=== PATIENT | male | born 1975 | race Caucasian/White ===

== ENCOUNTER 2016-06-16 18:07 | Emergency (ER) | payer MEDICAID ==
[2016-06-16] MEDS ORDERED: LORazepam INJ* 2 MG/ML 1 ML VIAL IV PUSH ONE (18:47)
[2016-06-16] MEDS ORDERED: NS 0.9% 1000 ML* 1,000 ML IV ONE (18:50)
[2016-06-16] MEDS ORDERED: Acetaminophen TAB* 325 MG PO ONE (18:50)
--- NOTE | 2016-06-16 18:55 | ED ---
Medical Screening - HPI Summary HPI Summary: The patient is a 41 year old male presenting to the ED for complaint of extreme restlessness, tremors, and insomnia. States onset of symptoms last night at 1130 PM. Admits to chills, diaphoresis, lightheadedness, dry mouth, urinary frequency with less output. Recent increased in Gabapentin from 600 QD to 600 TID and Risperdal 4 mg QD 2 days ago. Since onset of symptoms last night, has not taken prescribed medications today. Also prescribed Chantix, Clonidine, ibuprofen. Denies OTC medications, overuse of medications, or substance use. History of schizophrenia, PTSD, Anxiety, Hepatitis C. S/P abdominal hernia repairs. FH CAD and HTN. Psych Dr. Arnold. SH:Prior heroin use clean "for many years." Denies alcohol use. - History of Current Complaint Chief Complaint: EDGeneral Stated Complaint: ALLERGIC REACTION Time Seen by Provider: 06/16/16 18:33 PMH/Surg Hx/FS Hx/Imm Hx Psychiatric History: Reports: Hx Schizophrenia, Hx Suicide Attempt, Hx of Violent Episodes Against Others Denies: Hx Eating Disorder - Surgical History Surgery Procedure, Year, and Place: 3 ABD HERNIA REPAIRS Infectious Disease History: No Infectious Disease History: Reports: Hx Hepatitis - HEP C Denies: Traveled Outside the [place] in Last 30 Days - Family History Known Family History: Positive: Cardiac Disease, Hypertension - Social History Alcohol Use: None Substance Use Type: Reports: None Smoking Status (MU): Current Every Day Smoker Type: Cigarettes Amount Used/How Often: 1 PPD Review of Systems Positive: Chills, Skin Diaphoresis. Negative: Fever Eyes: Negative ENT: Negative Negative: Sore Throat, Nasal Discharge Positive: Palpitations. Negative: Chest Pain Respiratory: Negative Positive: Other - no hemoptysis. Negative: Shortness Of Breath, Cough Gastrointestinal: Negative Negative: Abdominal Pain, Vomiting, Diarrhea, Nausea Positive: frequency. Negative: dysuria, discharge, hematuria, incontinence Musculoskeletal: Negative Negative: Arthralgia, Myalgia, Edema Positive: Other - flushed face. Negative: Bruising Neurological: Other - tremors Positive: Anxious, Other - no SI, HI, paranoia or hallucinations. Negative: Depressed All Other Systems Reviewed And Are Negative: Yes Physical Exam Triage Information Reviewed: Yes Vital Signs On Initial Exam: Initial Vitals Temp Pulse Resp BP Pulse Ox 100.4 F 116 28 162/97 99 06/16/16 18:19 06/16/16 18:19 06/16/16 18:19 06/16/16 18:19 06/16/16 18:19 Vital Signs Reviewed: Yes Appearance: Positive: Well-Appearing, No Pain Distress, Well-Nourished Skin: Positive: Warm, Skin Color Reflects Adequate Perfusion, Dry, Other - erythematous flushed face and anterior superior chest Head/Face: Positive: Normal Head/Face Inspection Eyes: Positive: Normal, EOMI, REUBEN, Conjunctiva Clear ENT: Positive: Normal ENT inspection, Hearing grossly normal, Pharynx normal, TMs normal Neck: Positive: Supple, Nontender, No Lymphadenopathy, Other: - no thyromegaly Respiratory/Lung Sounds: Positive: Clear to Auscultation, Breath Sounds Present. Negative: Decreased Breath Sounds, Rales, Rhonchi, Wheezes, Unable to speak in full sentences, Fatigue Cardiovascular: Positive: RRR, Pulses are Symmetrical in both Upper and Lower Extremities, Tachycardia, S1, S2. Negative: Murmur, Rub, Leg Edema Left, Leg Edema Right, S3 Abdomen Description: Positive: Nontender, No Organomegaly, Soft. Negative: CVA Tenderness (R), CVA Tenderness (L), Distended, Guarding, McBurney's Point Tenderness, Peritoneal Signs Bowel Sounds: Positive: Present Musculoskeletal: Positive: Normal, Strength/ROM Intact Neurological: Positive: Normal, Sensory/Motor Intact, Alert, Oriented to Person Place, Time, CN Intact II-III, Reflexes Intact, Normal Gait, Facial Symmetry, Speech Normal Psychiatric: Positive: Anxious - significantly anxious, hyperverbal, hyperkinetic, resting tremors of hands without asterixis AVPU Assessment: Alert - [place] Coma Scale Coma Scale Total: 15 Diagnostics - Vital Signs Vital Signs Temp Pulse Resp BP Pulse Ox 06/16/16 18:19 100.4 F 116 28 162/97 99 - Laboratory Result Diagrams: 06/16/16 19:30 06/16/16 19:30 Lab Statement: Any lab studies that have been ordered have been reviewed, and results considered in the medical decision making process. Re-Evaluation - Re-Evaluation First Eval Re-Evaluation Time: 21:01 Change: Improved Comment: HR significantly improved. Patient appears calm, resting comfortably in bed. Discussed results and discharge plan. Course/Dx - Course Assessment/Plan: Presented for restlessness with recent change in antipsychotic and gabapentin. EKG sinus tachycardia. Initial temp 100.4 F for which tylenol given. Labs demonstrate thrombocytopenia without additional gross abnormality not requiring any emergent intervention. UA and CXR without acute infectious process. Patient demonstrated complete resolution in symptoms after Ativan. Advised to return to previous dosing of medications and call Dr. Arnold tomorrow to discuss further treatment. - Diagnoses Provider Diagnoses: Anxiety, Sinus tachycardia by electrocardiogram Discharge - Discharge Plan Condition: Stable Disposition: HOME Patient Education Materials: Anxiety (ED), Atrial Tachycardia (ED) Referrals: Conner Arnold MD [Medical Doctor] - (Call tomorrow to discuss further medications.)
[2016-06-16 18:58] LABS: Benzodiazepine Urine Screen None Detected (None Detect)
[2016-06-16 19:27] LABS: Urine Bilirubin Negative (Negative); Urine Glucose Negative (Negative); Urine Nitrite Negative (Negative)
[2016-06-16 19:40] LABS: Hematocrit 47 % (42-52); Hemoglobin 15.8 g/dl (14.0-18.0); Mean Corpuscular HGB Conc 34 g/dl (31-36); Mean Corpuscular Hemoglobin 30 pg (27-31); Mean Corpuscular Volume 89 fL (80-94); Mean Platelet Volume 8 um3 (7.4-10.4); Red Blood Count 5.27 10^6/ul (4.0-5.4); Red Cell Distribution Width 13 % (10.5-15); White Blood Count 6.3 10^3/ul (3.5-10.8)
[2016-06-16 19:57] LABS: ALT 18 U/L (7-52); AST 23 U/L (13-39); Albumin 4.5 g/dL (3.2-5.2); Alkaline Phosphatase 62 U/L (34-104); Anion Gap 7 mmol/L (2-11); BUN/Creatinine Ratio 6.4 (8-20); Blood Urea Nitrogen 7 mg/dL (6-24); CO2 Carbon Dioxide 29 mmol/L (22-32); Calcium 9.8 mg/dL (8.6-10.3); Chloride 102 mmol/L (101-111); EGFR African American 95.9 (>60); EGFR Non-African American 74.6 (>60); Glucose 101 mg/dL (70-100); Potassium 3.9 mmol/L (3.5-5.0); Sodium 138 mmol/L (133-145); Total Protein 7.5 g/dL (6.4-8.9)
[2016-06-16 20:25] LABS: Acetaminophen < 15 mcg/mL; Alcohol < 10 mg/dL (<10); Salicylate < 2.50 mg/dL (<30)
[2016-06-16 20:35] LABS: TSH (Thyroid Stimulating Horm) 1.06 mcIU/mL (0.34-5.60)
--- NOTE | 2016-06-16 20:52 | RAD ---
Indication: Fever. 2 views of the chest including dual energy PA views demonstrates no mediastinal shift. Heart is of normal size and configuration. Lung marroquin demonstrate no pleural fluid, pneumonia or pneumothorax. IMPRESSION: No active cardiopulmonary disease.
[2016-06-16] MEDS ORDERED: LORazepam TAB(*) 1 MG PO ONE (21:08)
[2016-06-16 21:37] VITALS: BP 138/83
== END 2016-06-16 21:37 | disposition home or self-care (01) ==
LOC: ED 18:07
DX: R00.2 Palpitations (principal); R00.0 Tachycardia, unspecified; F41.9 Anxiety disorder, unspecified; F17.210 Nicotine dependence, cigarettes, uncomplicated
CPT/HCPCS: 36415; 71020; 80053; 80307; 80320; 80329; 81003; 84443; 85025; 93005; 96374; 99283; A9270-GY; G0480; J2060

== ENCOUNTER 2016-08-16 21:35 | Emergency (ER) | payer OTHER ==
[2016-08-16 21:41] VITALS: BP 142/67
[2016-08-16 22:21] LABS: Urine Bilirubin Negative (Negative); Urine Glucose Negative (Negative); Urine Nitrite Negative (Negative)
[2016-08-16 22:21] LABS: Hematocrit 38 % (42-52); Hemoglobin 12.8 g/dl (14.0-18.0); Mean Corpuscular HGB Conc 34 g/dl (31-36); Mean Corpuscular Hemoglobin 30 pg (27-31); Mean Corpuscular Volume 89 fL (80-94); Mean Platelet Volume 8 um3 (7.4-10.4); Red Blood Count 4.27 10^6/ul (4.0-5.4); Red Cell Distribution Width 14 % (10.5-15); White Blood Count 7.7 10^3/ul (3.5-10.8)
[2016-08-16 22:40] LABS: ALT 15 U/L (7-52); AST 19 U/L (13-39); Albumin 4.1 g/dL (3.2-5.2); Alkaline Phosphatase 50 U/L (34-104); Anion Gap 6 mmol/L (2-11); BUN/Creatinine Ratio 8.3 (8-20); Blood Urea Nitrogen 9 mg/dL (6-24); CO2 Carbon Dioxide 25 mmol/L (22-32); Chloride 104 mmol/L (101-111); EGFR African American 95.9 (>60); EGFR Non-African American 74.6 (>60); Globulin 2.7 g/dL (2-4); Glucose 86 mg/dL (70-100); Potassium 3.6 mmol/L (3.5-5.0); Sodium 135 mmol/L (133-145); Total Protein 6.8 g/dL (6.4-8.9)
[2016-08-16 22:42] LABS: Benzodiazepine Urine Screen None Detected (None Detect)
[2016-08-16 23:03] LABS: Acetaminophen < 15 mcg/mL; Alcohol < 10 mg/dL (<10); Salicylate < 2.50 mg/dL (<30)
--- NOTE | 2016-08-17 00:48 | ED ---
Rojelio Severino Benjamin, scribed for Tru Saavedra MD on 08/16/16 at 2321 . Psychiatric Complaint - HPI Summary HPI Summary: 41yo male c/o increased anxiety, aggressiveness for 2 days. Has hx of schizophrenia and his meds have been recently changed. Pt states "wants to be in a safe place." Pt thinks his anxiety will progress to wanting to hurt self, and thinks people are following him. Pt told his therapist about it today but he says at the time his feelings weren't so "dark." - History Of Current Complaint Chief Complaint: EDMentalHealth Hx Obtained From: Patient Onset/Duration: Sudden Onset, Lasting Days, Still Present Timing: Constant Severity Initially: Mild Severity Currently: Moderate Character: Anxious Aggravating Factor(s): Nothing Alleviating Factor(s): Nothing Associated Signs And Symptoms: Positive: Paranoid Behavior - Allergies/Home Medications Allergies/Adverse Reactions: Allergies Allergy/AdvReac Type Severity Reaction Status Date / Time No Known Allergies Allergy Verified 12/15/15 20:32 PMH/Surg Hx/FS Hx/Imm Hx Psychiatric History: Reports: Hx Schizophrenia, Hx Suicide Attempt, Hx of Violent Episodes Against Others Denies: Hx Eating Disorder - Surgical History Surgery Procedure, Year, and Place: 3 ABD HERNIA REPAIRS Infectious Disease History: No Infectious Disease History: Reports: Hx Hepatitis - HEP C Denies: Traveled Outside the [place] in Last 30 Days - Family History Known Family History: Positive: Cardiac Disease, Hypertension - Social History Occupation: Unemployed Lives: Alone Alcohol Use: None Substance Use Type: Reports: Prescribed, Other Substance Use Comment - Amount & Last Used: Pt states he's been smoking crack, & recently pain meds for teeth Smoking Status (MU): Former Smoker Type: Cigarettes Amount Used/How Often: 1 PPD Review of Systems Constitutional: Negative Eyes: Negative ENT: Negative Cardiovascular: Negative Respiratory: Negative Gastrointestinal: Negative Genitourinary: Negative Musculoskeletal: Negative Skin: Negative Neurological: Negative Positive: Anxious All Other Systems Reviewed And Are Negative: Yes Physical Exam Triage Information Reviewed: Yes Vital Signs On Initial Exam: Initial Vitals Temp Pulse Resp BP Pulse Ox 98.5 F 84 14 142/67 97 08/16/16 21:38 08/16/16 21:38 08/16/16 21:38 08/16/16 21:38 08/16/16 21:38 Vital Signs Reviewed: Yes Appearance: Positive: Well-Appearing, No Pain Distress Skin: Positive: Warm Head/Face: Positive: Normal Head/Face Inspection Eyes: Positive: REUBEN ENT: Positive: Hearing grossly normal Neck: Positive: Supple Respiratory/Lung Sounds: Positive: Breath Sounds Present Cardiovascular: Positive: RRR Abdomen Description: Positive: Nontender, Soft Bowel Sounds: Positive: Present Musculoskeletal: Positive: Strength/ROM Intact Neurological: Positive: Alert, Oriented to Person Place, Time, Normal Gait Psychiatric: Positive: Anxious - [place] Coma Scale Coma Scale Total: 15 Diagnostics - Vital Signs Vital Signs Temp Pulse Resp BP Pulse Ox 08/16/16 21:38 98.5 F 84 14 142/67 97 - Laboratory Lab Results: Lab Results 08/16/16 08/16/16 08/16/16 Range/Units 22:08 22:08 22:09 WBC 7.7 (3.5-10.8) 10^3/ul RBC 4.27 (4.0-5.4) 10^6/ul Hgb 12.8 L (14.0-18.0) g/dl Hct 38 L (42-52) % MCV 89 (80-94) fL MCH 30 (27-31) pg MCHC 34 (31-36) g/dl RDW 14 (10.5-15) % Plt Count 180 (150-450) 10^3/ul MPV 8 (7.4-10.4) um3 Neut % (Auto) 70.8 (38-83) % Lymph % (Auto) 17.0 L (25-47) % [place] % (Auto) 5.2 (1-9) % Eos % (Auto) 4.2 (0-6) % Baso % (Auto) 2.8 H (0-2) % Absolute Neuts (auto) 5.4 (1.5-7.7) 10^3/ul Absolute Lymphs (auto) 1.3 (1.0-4.8) 10^3/ul Absolute Monos (auto) 0.4 (0-0.8) 10^3/ul Absolute Eos (auto) 0.3 (0-0.6) 10^3/ul Absolute Basos (auto) 0.2 (0-0.2) 10^3/ul Absolute Nucleated RBC 0 10^3/ul Nucleated RBC % 0 Sodium 135 (133-145) mmol/L Potassium 3.6 (3.5-5.0) mmol/L Chloride 104 (101-111) mmol/L Carbon Dioxide 25 (22-32) mmol/L Anion Gap 6 (2-11) mmol/L BUN 9 (6-24) mg/dL Creatinine 1.09 (0.67-1.17) mg/dL Est GFR ( Amer) 95.9 (>60) Est GFR (Non-Af Amer) 74.6 (>60) BUN/Creatinine Ratio 8.3 (8-20) Glucose 86 (70-100) mg/dL Calcium 9.0 (8.6-10.3) mg/dL Total Bilirubin 0.60 (0.2-1.0) mg/dL AST 19 (13-39) U/L ALT 15 (7-52) U/L Alkaline Phosphatase 50 (34-104) U/L Total Protein 6.8 (6.4-8.9) g/dL Albumin 4.1 (3.2-5.2) g/dL Globulin 2.7 (2-4) g/dL Albumin/Globulin Ratio 1.5 (1-3) TSH 1.00 (0.34-5.60) mcIU/mL Urine Color Yellow Urine Appearance Clear Urine pH 5.0 (5-9) Ur Specific [place] 1.014 (1.010-1.030) Urine Protein Negative (Negative) Urine Ketones 1+ H (Negative) Urine Blood Negative (Negative) Urine Nitrate Negative (Negative) Urine Bilirubin Negative (Negative) Urine Urobilinogen Negative (Negative) Ur Leukocyte Esterase Negative (Negative) Urine Glucose Negative (Negative) Salicylates < 2.50 (<30) mg/dL Urine Opiates Screen (None Detect) Acetaminophen < 15 mcg/mL Ur Barbiturates Screen (None Detect) Ur Phencyclidine Scrn (None Detect) Ur Amphetamines Screen (None Detect) U Benzodiazepines Scrn (None Detect) Urine Cocaine Screen (None Detect) U Cannabinoids Screen (None Detect) Serum Alcohol < 10 (<10) mg/dL 08/16/16 Range/Units 22:09 WBC (3.5-10.8) 10^3/ul RBC (4.0-5.4) 10^6/ul Hgb (14.0-18.0) g/dl Hct (42-52) % MCV (80-94) fL MCH (27-31) pg MCHC (31-36) g/dl RDW (10.5-15) % Plt Count (150-450) 10^3/ul MPV (7.4-10.4) um3 Neut % (Auto) (38-83) % Lymph % (Auto) (25-47) % [place] % (Auto) (1-9) % Eos % (Auto) (0-6) % Baso % (Auto) (0-2) % Absolute Neuts (auto) (1.5-7.7) 10^3/ul Absolute Lymphs (auto) (1.0-4.8) 10^3/ul Absolute Monos (auto) (0-0.8) 10^3/ul Absolute Eos (auto) (0-0.6) 10^3/ul Absolute Basos (auto) (0-0.2) 10^3/ul Absolute Nucleated RBC 10^3/ul Nucleated RBC % Sodium (133-145) mmol/L Potassium (3.5-5.0) mmol/L Chloride (101-111) mmol/L Carbon Dioxide (22-32) mmol/L Anion Gap (2-11) mmol/L BUN (6-24) mg/dL Creatinine (0.67-1.17) mg/dL Est GFR ( Amer) (>60) Est GFR (Non-Af Amer) (>60) BUN/Creatinine Ratio (8-20) Glucose (70-100) mg/dL Calcium (8.6-10.3) mg/dL Total Bilirubin (0.2-1.0) mg/dL AST (13-39) U/L ALT (7-52) U/L Alkaline Phosphatase (34-104) U/L Total Protein (6.4-8.9) g/dL Albumin (3.2-5.2) g/dL Globulin (2-4) g/dL Albumin/Globulin Ratio (1-3) TSH (0.34-5.60) mcIU/mL Urine Color Urine Appearance Urine pH (5-9) Ur Specific [place] (1.010-1.030) Urine Protein (Negative) Urine Ketones (Negative) Urine Blood (Negative) Urine Nitrate (Negative) Urine Bilirubin (Negative) Urine Urobilinogen (Negative) Ur Leukocyte Esterase (Negative) Urine Glucose (Negative) Salicylates (<30) mg/dL Urine Opiates Screen None detected (None Detect) Acetaminophen mcg/mL Ur Barbiturates Screen None detected (None Detect) Ur Phencyclidine Scrn None detected (None Detect) Ur Amphetamines Screen None detected (None Detect) U Benzodiazepines Scrn None detected (None Detect) Urine Cocaine Screen Presumptive positive H (None Detect) U Cannabinoids Screen Presumptive positive H (None Detect) Serum Alcohol (<10) mg/dL Result Diagrams: 08/16/16 22:08 08/16/16 22:08 Lab Statement: Any lab studies that have been ordered have been reviewed, and results considered in the medical decision making process. Re-Evaluation - Re-Evaluation First Eval Change: Improved - pt seen and cleared by crisis Course/Dx - Course Assessment/Plan: Medically cleared for MHE @ 2300. - Differential Dx/Clinical Impression Provider Diagnosis: Depression Discharge - Discharge Plan Condition: Stable Disposition: HOME Referrals: Bobo Nieves NP [Primary Care Provider] - Additional Instructions: Per completion of a mental health evaluation, you are cleared for release and do not require inpatient psychiatric hospitalization at this time. Please go to nearest emergency room or call 911 if safety concerns arise or condition worsens. Follow up with current community resources as scheduled. Important Phone Numbers: [facility] [phone] Suicide Prevention and Crisis Services [phone] National Suicide Prevention Lifeline 472-703-KXWI (2466) [facility] [phone] Alcoholics Anonymous [phone] [facility] [phone] [place] [employer] [phone] The documentation as recorded by the Rojelio caro Benjamin accurately reflects the service I personally performed and the decisions made by me, Tru Saavedra MD.
== END 2016-08-17 00:53 | disposition home or self-care (01) ==
LOC: ED 21:35
DX: F32.9 Major depressive disorder, single episode, unspecified (principal)
CPT/HCPCS: 36415; 80053; 80307; 80320; 80329; 81003; 84443; 85025; 99284; G0480

== ENCOUNTER → 2016-08-19 21:36 | Emergency (ER) | payer OTHER | END | disposition left against medical advice (07) | LOC: ED 21:36 | DX: R07.9 Chest pain, unspecified (principal); Z53.21 Procedure and treatment not carried out due to patient leaving prior to being seen by health care provider | CPT/HCPCS: 99281 ==